=== PATIENT | female | born 1950 | race Caucasian/White ===

== ENCOUNTER 2019-04-28 16:19 | Inpatient (IN) | payer OTHER ==
[2019-04-28 17:24] LABS: Absolute Lymphocytes (CBC) 1.3 K/uL (0.7-4.9); Basophils % 0.3 % (0-1.3); Hematocrit 40.7 % (36.0-45.0); Lymphocytes % 16.3 % (15.3-44.8); MPV 9.1 fL (7.6-11.3); RBC Red Blood Cell Count 4.73 M/uL (3.86-4.86)
[2019-04-28 17:43] LABS: Albumin 3.7 g/dL (3.4-5.0); Bilirubin Direct 0.2 mg/dL (0-0.2); Bilirubin Total 0.6 mg/dL (0.2-1.0); Magnesium 1.9 mg/dL (1.8-2.4); Protein, Total 7.5 g/dL (6.4-8.2); Troponin (Emerg Dept Use Only) 0.12 ng/mL (0.0-0.045)
[2019-04-28 17:44] LABS: Protime INR 0.98
--- NOTE | 2019-04-28 17:56 | ER ---
Nurse's Notes [facility] Name: Clarice Esquivel Age: 68 yrs Sex: Female : 1950 Arrival Date: 04/28/2019 Time: 16:24 Bed 18 Private MD: Diagnosis: Other chest pain;Obesity, unspecified;Essential (primary) hypertension;Tachycardia, unspecified Presentation: 04/28 16:25 Presenting complaint: Patient states: headache, "feeling funny", hx HTN but hasn't been sv taking her prescribed meds and started taking holistic meds but then stopped taking those as well. Transition of care: patient was not received from another setting of care. Onset of symptoms was April 28, 2019. Risk Assessment: Do you want to hurt yourself or someone else? Patient reports no desire to harm self or others. Care prior to arrival: None. 16:25 Method Of Arrival: Ambulatory sv 16:25 Acuity: YESSENIA 2 sv 19:00 Initial Sepsis Screen: Does the patient meet any 2 criteria? No. Patient's initial rr5 sepsis screen is negative. Does the patient have a suspected source of infection? No. Patient's initial sepsis screen is negative. Historical: - Allergies: 16:26 No Known Allergies; sv - PMHx: 16:26 Hypertension; Hernia; sv - PSHx: 16:26 Hernia repair; Hysterectomy; sv - Immunization history:: Adult Immunizations unknown. - Social history:: Smoking status: unknown. - Ebola Screening: : Patient negative for fever greater than or equal to 101.5 degrees Fahrenheit, and additional compatible Ebola Virus Disease symptoms Patient denies exposure to infectious person Patient denies travel to an Ebola-affected area in the 21 days before illness onset. Screenin:14 Abuse screen: Denies threats or abuse. Denies injuries from another. Nutritional jl7 screening: No deficits noted. Tuberculosis screening: No symptoms or risk factors identified. Fall Risk IV access (20 points). Total Melton Fall Scale indicates No Risk (0-24 pts). Assessment: 17:00 General: Appears in no apparent distress. uncomfortable, Behavior is cooperative, jl7 anxious. Pain: Denies pain. Neuro: Level of Consciousness is awake, alert, obeys commands, Oriented to person, place, time, situation. Cardiovascular: Patient's skin is warm and dry. Respiratory: Airway is patent Respiratory effort is even, unlabored, Respiratory pattern is regular, symmetrical. GI: No signs and/or symptoms were reported involving the gastrointestinal system. : Reports urinary frequency. EENT: No signs and/or symptoms were reported regarding the EENT system. Derm: Skin is pink, warm \\T\\ dry. Musculoskeletal: No signs and/or symptoms reported regarding the musculoskeletal system. 18:26 Reassessment: D-Dimer 600, ERP notified. jl7 18:40 Reassessment: Dr. Trujillo and Dr. Duffy at bedside. jl7 19:25 General: Appears in no apparent distress. uncomfortable, Behavior is calm, cooperative, rr5 appropriate for age. Pain: Denies pain. Neuro: Level of Consciousness is awake, alert, obeys commands, Oriented to person, place, time, situation, Appropriate for age. Cardiovascular: Reports high BP Capillary refill < 3 seconds Patient's skin is warm and dry. Respiratory: Airway is patent Respiratory effort is even, unlabored, Respiratory pattern is regular, symmetrical. GI: No signs and/or symptoms were reported involving the gastrointestinal system. : Reports urinary frequency. EENT: No signs and/or symptoms were reported regarding the EENT system. Derm: Skin is intact, Skin is pink, warm \\T\\ dry. Musculoskeletal: Circulation, motion, and sensation intact. Capillary refill < 3 seconds. 20:06 Reassessment: Patient appears in no apparent distress at this time. Patient and/or rr5 family updated on plan of care and expected duration. Pain level reassessed. Patient is alert, oriented x 3, equal unlabored respirations, skin warm/dry/pink. sofa chair given, patient verbalized she feels much better now. awaiting for room assignment. Patient states feeling better. Patient states symptoms have improved. 21:11 Reassessment: Patient appears in no apparent distress at this time. Patient and/or rr5 family updated on plan of care and expected duration. Pain level reassessed. Patient is alert, oriented x 3, equal unlabored respirations, skin warm/dry/pink. explained to patient she will be an ER hold agreed for the plan, without complaints made. Vital Signs: 16:26 BP 181 / 85; Pulse 108; Resp 20; Temp 98.5; Pulse Ox 98% ; Weight 122.47 kg; Height 5 sv ft. 1 in. (154.94 cm); 18:38 BP 192 / 93; Pulse 91; Resp 22 S; Pulse Ox 97% on R/A; jl7 19:00 BP 171 / 85; Pulse 99; Resp 21; Temp 98.4; Pulse Ox 98% ; rr5 20:00 BP 160 / 74; Pulse 84; Resp 20; Temp 98.2; Pulse Ox 99% ; rr5 21:00 BP 168 / 71; Pulse 79; Resp 19; Temp 98.1; Pulse Ox 99% ; rr5 16:26 Body Mass Index 51.02 (122.47 kg, 154.94 cm) sv ED Course: 16:24 Patient arrived in ED. mr 16:26 Triage completed. sv 16:28 Arm band placed on. sv 16:34 Pepper Meade, ARIELLA is Primary Nurse. jl7 16:35 Israel Trujillo MD is Attending Physician. mariam 17:00 Patient has correct armband on for positive identification. Placed in gown. Bed in low jl7 position. Call light in reach. Side rails up X 1. cafeteria monitor on. Pulse ox on. NIBP on. 17:03 EKG done, by furniture repair technician. reviewed by Israel Trujillo MD. 3 17:12 XRAY Chest (1 view) In Process Unspecified. EDMS 17:15 Initial lab(s) drawn, by in, sent to lab. Inserted saline lock: 22 gauge in left jl7 forearm, using aseptic technique. Blood collected. 17:33 Urine collected: clean catch specimen, clear. jl7 17:52 Sailaja Mendiola MD is Hospitalizing Provider. [facility] 17:56 Terry Duffy MD is Hospitalizing Provider. mariam 18:09 CT Head Brain wo Cont In Process Unspecified. EDMS 23:00 No provider procedures requiring assistance completed. Patient admitted, IV remains in rr5 place. intact, No redness/swelling at site. Administered Medications: 18:40 Drug: Lopressor 5 mg Route: IVP; Site: left forearm; jl7 19:00 Follow up: Response: No adverse reaction; Blood pressure is lowered jl7 18:45 Drug: Pepcid 20 mg Route: IVP; Site: left forearm; jl7 19:00 Follow up: Response: No adverse reaction jl7 18:51 Drug: Lopressor (metoprolol TARTRATE) 50 mg Route: PO; jl7 19:00 Follow up: Response: No adverse reaction jl7 18:52 Not Given (Pt took 325 mg aspirin prior to arrival): Aspirin 162 mg PO once jl7 18:52 Not Given (Patient Refused): morphine 2 mg IVP once; (PAIN>8) RASS on ADMN: Combtv4, jl7 Very Agttd3, Agttd2, Rstlss1, AlertClm0, Drwsy-1, LtSdtn-2, ModSdtn-3, DpSdtn-4, UnArsble-5 x2 18:52 Not Given (Patient Refused): Zofran 4 mg IVP once; over 2 minutes jl7 18:53 Drug: Lovenox 1 mg/kg Route: Sub-Q; Site: left upper abdomen; jl7 19:00 Follow up: Response: No adverse reaction 7 Outcome: 17:54 Decision to Hospitalize by Provider. [facility] 23:00 Admitted to ER Hold. Please see [facility] for further documentation. rr5 23:00 Condition: stable rr5 23:00 Instructed on the need for admit. 04/29 07:37 Patient left the ED. Signatures: Dispatcher [employer] EDMS Jennifer Colon RN RN Israel Gregory MD MD cha Rivera, Mary mr Baxter, Heather, RN RN Pepper Meade RN RN jl7 Martina Underwood 3 Jai Call RN RN rr5 Corrections: (The following items were deleted from the chart) 04/28 16:29 16:25 Acuity: YESSENIA 3 sv sv 16:29 16:26 Pulse 108bpm; Resp 20bpm; Pulse Ox 98%; Temp 98.5F; 122.47 kg; Height 5 ft. 1 sv in.; BMI: 51.0; sv
--- NOTE | 2019-04-28 17:56 | EDPHYS ---
Physician Documentation [facility] Name: Clarice Esquivel Age: 68 yrs Sex: Female : 1950 Arrival Date: 04/28/2019 Time: 16:24 Bed 18 Private MD: EULOGIO Physician Israel Trujillo HPI: 04/28 17:49 This 68 yrs old Female presents to ER via Ambulatory with complaints of High mariam Blood Pressure. 17:49 The patient has elevated blood pressure and discovered this at home, with a home mariam device. Onset: The symptoms/episode began/occurred 1 day(s) ago. Modifying factors: The symptoms are aggravated by activity, The symptoms are alleviated by remaining still. Historical: - Allergies: 16:26 No Known Allergies; sv - PMHx: 16:26 Hypertension; Hernia; sv - PSHx: 16:26 Hernia repair; Hysterectomy; sv - Immunization history:: Adult Immunizations unknown. - Social history:: Smoking status: unknown. - Ebola Screening: : Patient negative for fever greater than or equal to 101.5 degrees Fahrenheit, and additional compatible Ebola Virus Disease symptoms Patient denies exposure to infectious person Patient denies travel to an Ebola-affected area in the 21 days before illness onset. ROS: 17:51 Constitutional: Negative for fever, chills, and weight loss, Eyes: Negative for injury, mariam pain, redness, and discharge, ENT: Negative for injury, pain, and discharge, Neck: Negative for injury, pain, and swelling, Respiratory: Negative for shortness of breath, cough, wheezing, and pleuritic chest pain, Abdomen/GI: Negative for abdominal pain, nausea, vomiting, diarrhea, and constipation, Back: Negative for injury and pain, : Negative for injury, bleeding, discharge, and swelling, MS/Extremity: Negative for injury and deformity, Skin: Negative for injury, rash, and discoloration, Neuro: Negative for headache, weakness, numbness, tingling, and seizure, Psych: Negative for depression, anxiety, suicide ideation, homicidal ideation, and hallucinations, Allergy/Immunology: Negative for hives, rash, and allergies, Endocrine: Negative for neck swelling, polydipsia, polyuria, polyphagia, and marked weight changes, Hematologic/Lymphatic: Negative for swollen nodes, abnormal bleeding, and unusual bruising. 17:51 Cardiovascular: Positive for chest pain, of the chest. Exam: 17:51 Constitutional: This is a well developed, well nourished patient who is awake, alert, mariam and in no acute distress. Head/Face: Normocephalic, atraumatic. Eyes: Pupils equal round and reactive to light, extra-ocular motions intact. Lids and lashes normal. Conjunctiva and sclera are non-icteric and not injected. Cornea within normal limits. Periorbital areas with no swelling, redness, or edema. ENT: Nares patent. No nasal discharge, no septal abnormalities noted. Tympanic membranes are normal and external auditory canals are clear. Oropharynx with no redness, swelling, or masses, exudates, or evidence of obstruction, uvula midline. Mucous membranes moist. Neck: Trachea midline, no thyromegaly or masses palpated, and no cervical lymphadenopathy. Supple, full range of motion without nuchal rigidity, or vertebral point tenderness. No Meningismus. Chest/axilla: Normal chest wall appearance and motion. Nontender with no deformity. No lesions are appreciated. Cardiovascular: Regular rate and rhythm with a normal S1 and S2. No gallops, murmurs, or rubs. Normal PMI, no JVD. No pulse deficits. Respiratory: Lungs have equal breath sounds bilaterally, clear to auscultation and percussion. No rales, rhonchi or wheezes noted. No increased work of breathing, no retractions or nasal flaring. Abdomen/GI: Soft, non-tender, with normal bowel sounds. No distension or tympany. No guarding or rebound. No evidence of tenderness throughout. Back: No spinal tenderness. No costovertebral tenderness. Full range of motion. Female : Normal external genitalia. Skin: Warm, dry with normal turgor. Normal color with no rashes, no lesions, and no evidence of cellulitis. MS/ Extremity: Pulses equal, no cyanosis. Neurovascular intact. Full, normal range of motion. Neuro: Awake and alert, GCS 15, oriented to person, place, time, and situation. Cranial nerves II-XII grossly intact. Motor strength 5/5 in all extremities. Sensory grossly intact. Cerebellar exam normal. Normal gait. Psych: Awake, alert, with orientation to person, place and time. Behavior, mood, and affect are within normal limits. Vital Signs: 16:26 BP 181 / 85; Pulse 108; Resp 20; Temp 98.5; Pulse Ox 98% ; Weight 122.47 kg; Height 5 sv ft. 1 in. (154.94 cm); 18:38 BP 192 / 93; Pulse 91; Resp 22 S; Pulse Ox 97% on R/A; jl7 19:00 BP 171 / 85; Pulse 99; Resp 21; Temp 98.4; Pulse Ox 98% ; rr5 20:00 BP 160 / 74; Pulse 84; Resp 20; Temp 98.2; Pulse Ox 99% ; rr5 21:00 BP 168 / 71; Pulse 79; Resp 19; Temp 98.1; Pulse Ox 99% ; rr5 16:26 Body Mass Index 51.02 (122.47 kg, 154.94 cm) sv MDM: 16:36 Patient medically screened. [facility] 17:51 Data reviewed: vital signs, nurses notes, lab test result(s), EKG, radiologic studies, [facility] CT scan, plain films. 04/28 16:37 Order name: Basic Metabolic Panel [facility] 04/28 16:37 Order name: CBC with Diff [facility] 04/28 16:37 Order name: LFT's [facility] 04/28 16:37 Order name: Magnesium [facility] 04/28 16:37 Order name: NT PRO-BNP [facility] 04/28 16:37 Order name: PT-INR [facility] 04/28 16:37 Order name: Troponin (emerg Dept Use Only); Complete Time: 17:47 [facility] 04/28 16:37 Order name: Basic Metabolic Panel; Complete Time: 17:47 [facility] 04/28 16:37 Order name: CBC with Automated Diff; Complete Time: 17:47 [facility] 04/28 16:37 Order name: Liver (Hepatic) Function; Complete Time: 17:47 [facility] 04/28 16:37 Order name: Magnesium; Complete Time: 17:47 [facility] 04/28 16:37 Order name: NT PRO-BNP; Complete Time: 17:47 [facility] 04/28 17:32 Order name: Urine Dipstick--Ancillary (enter results) 04/28 17:56 Order name: LAB Add On 04/28 16:37 Order name: XRAY Chest (1 view) [facility] 04/28 17:50 Order name: CT Head Brain wo Cont [facility] 04/28 18:04 Order name: D-Dimer [facility] 04/28 18:32 Order name: CT Chest For PE Angio bd 04/28 23:47 Order name: Troponin I [facility] 04/29 02:21 Order name: Urine Microscopic Only [facility] 04/29 06:58 Order name: CBC with Automated Diff [facility] 04/29 07:21 Order name: Basic Metabolic Panel [facility] 04/29 07:21 Order name: Lipid Profile [facility] 04/28 16:37 Order name: EKG; Complete Time: 16:38 [facility] 04/28 16:37 Order name: Cardiac monitoring; Complete Time: 17:11 [facility] 04/28 16:37 Order name: EKG - Nurse/Tech; Complete Time: 17:12 [facility] 04/28 16:37 Order name: IV Saline Lock; Complete Time: 17:12 [facility] 04/28 16:37 Order name: Labs collected and sent; Complete Time: 17:12 [facility] 04/28 16:37 Order name: O2 Per Protocol; Complete Time: 17:12 [facility] 04/28 16:37 Order name: O2 Sat Monitoring; Complete Time: 17:11 [facility] 04/28 16:37 Order name: Urine Dipstick-Ancillary (obtain specimen); Complete Time: 17:33 [facility] Administered Medications: 18:40 Drug: Lopressor 5 mg Route: IVP; Site: left forearm; jl7 19:00 Follow up: Response: No adverse reaction; Blood pressure is lowered jl7 18:45 Drug: Pepcid 20 mg Route: IVP; Site: left forearm; jl7 19:00 Follow up: Response: No adverse reaction jl7 18:51 Drug: Lopressor (metoprolol TARTRATE) 50 mg Route: PO; jl7 19:00 Follow up: Response: No adverse reaction jl7 18:52 Not Given (Pt took 325 mg aspirin prior to arrival): Aspirin 162 mg PO once jl7 18:52 Not Given (Patient Refused): morphine 2 mg IVP once; (PAIN>8) RASS on ADMN: Combtv4, jl7 Very Agttd3, Agttd2, Rstlss1, AlertClm0, Drwsy-1, LtSdtn-2, ModSdtn-3, DpSdtn-4, UnArsble-5 x2 18:52 Not Given (Patient Refused): Zofran 4 mg IVP once; over 2 minutes jl7 18:53 Drug: Lovenox 1 mg/kg Route: Sub-Q; Site: left upper abdomen; jl7 19:00 Follow up: Response: No adverse reaction jl7 Disposition: 04/28/19 17:54 Hospitalization ordered by Terry Duffy for Inpatient Admission. Preliminary diagnosis are Other chest pain, Obesity, unspecified, Essential (primary) hypertension, Tachycardia, unspecified. - Bed requested for Telemetry/MedSurg (Inpatient). - Status is Inpatient Admission. hb - Condition is Stable. - Problem is new. - Symptoms have improved. UTI on Admission? No Signatures: Dispatcher [employer] EDMS Jennifer Colon RN RN Israel Trujillo MD MD cha Garcia, Cindy RN RN Celsa Stockton RN RN hb Leal, Jahala, RN RN jl7 Jai Call RN RN rr5 Corrections: (The following items were deleted from the chart) 17:56 17:54 Hospitalization Ordered by Sailaja Mendiola MD for Inpatient Admission. Preliminary [facility] diagnosis is Other chest pain; Obesity, unspecified; Essential (primary) hypertension; Tachycardia, unspecified. Bed requested for Telemetry/MedSurg (Inpatient). Status is Inpatient Admission. Condition is Stable. Problem is new. Symptoms have improved. UTI on Admission? No. mariam 22:38 17:56 04/28/2019 17:54 Hospitalization Ordered by Terry Duffy MD for Inpatient cg Admission. Preliminary diagnosis is Other chest pain; Obesity, unspecified; Essential (primary) hypertension; Tachycardia, unspecified. Bed requested for Telemetry/MedSurg (Inpatient). Status is Inpatient Admission. Condition is Stable. Problem is new. Symptoms have improved. UTI on Admission? No. mariam 04/29 04:35 04/28 22:38 04/28/2019 17:54 Hospitalization Ordered by Terry Duffy MD for Inpatient cg Admission. Preliminary diagnosis is Other chest pain; Obesity, unspecified; Essential (primary) hypertension; Tachycardia, unspecified. Bed requested for [facility] ER HOLD. Status is Inpatient Admission. Condition is Stable. Problem is new. Symptoms have improved. UTI on Admission? No. cg 04/29 05:27 04:35 04/28/2019 17:54 Hospitalization Ordered by Terry Duffy MD for Inpatient cg Admission. Preliminary diagnosis is Other chest pain; Obesity, unspecified; Essential (primary) hypertension; Tachycardia, unspecified. Bed requested for Telemetry/MedSurg (Inpatient). Status is Inpatient Admission. Condition is Stable. Problem is new. Symptoms have improved. UTI on Admission? No. cg 07:37 05:27 04/28/2019 17:54 Hospitalization Ordered by Terry Duffy MD for Inpatient hb Admission. Preliminary diagnosis is Other chest pain; Obesity, unspecified; Essential (primary) hypertension; Tachycardia, unspecified. Bed requested for Telemetry/MedSurg (Inpatient). Status is Inpatient Admission. Condition is Stable. Problem is new. Symptoms have improved. UTI on Admission? No. cg
[2019-04-28] MEDS ORDERED: METOPROLOL TAR 50 MG TAB ONE (18:04)
[2019-04-28] MEDS ORDERED: ENOXAPARIN 100 MG/ML SYR SQ ONE (18:05)
[2019-04-28] MEDS ORDERED: METOPROLOL TARTRATE 5 MG/5 ML INJ IV ONE (18:05)
[2019-04-28] MEDS ORDERED: ONDANSETRON 4 MG/2 ML VIAL ONE (18:05)
[2019-04-28] MEDS ORDERED: MORPHINE 2 MG/ML SYR ONE (18:05)
[2019-04-28] MEDS ORDERED: FAMOTIDINE 20 MG/2 ML VIAL IV ONE (18:06)
[2019-04-28] MEDS ORDERED: ENOXAPARIN 30 MG/0.3 ML SQ ONE (18:06)
[2019-04-28] MEDS ORDERED: LABETALOL 20 MG/4ML SYRINGE IV PRN (18:42)
--- NOTE | 2019-04-28 18:49 | P.HP ---
Certification for Inpatient Patient admitted to: Inpatient With expected LOS: >2 Midnights Practitioner: I am a practitioner with admitting privileges, knowledge of patient current condition, hospital course, and medical plan of care. Services: Services provided to patient in accordance with Admission requirements found in Title 42 Section 412.3 of the Code of Federal Regulations Patient History Date of Service: 04/28/19 Primary Care Provider: Zion Reason for admission: Chest pain History of Present Illness: Patient is a 68-year-old female with past medical history of hypertension, obesity history of pulmonary embolism was in her usual state of health until day of admission when the patient had sudden onset of shoulder pain radiating to the arm. Also reported some chest tightness. Also had some headache. No associated nausea vomiting diaphoresis or palpitations. Patient does not take any medications for her blood pressure and notes that it is not well controlled. Patient's symptoms constant moderate progressively worsening. Patient came into the ER for further evaluation Initial workup revealed troponin level of 0.12. D-dimer was elevated. CT angio chest is pending. EKG did not show any acute ST elevation. 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 - Family History Brother -: Heart disease (Heart attack in his 40s), Other (see notes) Notes: hernia repair - Social History Smoking Status: Never smoker Alcohol use: No CD- Drugs: No Caffeine use: No Place of Residence: Home Review of Systems 10-point ROS is otherwise unremarkable Cardiovascular: As per HPI Musculoskeletal: As per HPI Physical Examination - Vital Signs Temperature: 98.5 F Blood Pressure: 181/85 Pulse: 108 Respirations: 20 Pulse Ox (%): 98 - Physical Exam General: Alert, Oriented x3, Mild distress, Obese, Other (Elderly female ill- appearing) HEENT: Atraumatic, PERRLA, Mucous membr. moist/pink, EOMI, Sclerae nonicteric Neck: Supple, JVD not distended Respiratory: Clear to auscultation bilaterally, Normal air movement Cardiovascular: No edema, Normal pulses, Normal S1 S2, Irregular heart rate/ rhythm Gastrointestinal: Normal bowel sounds, Soft and benign, Non-distended, No tenderness, No rebound, No guarding, Other (Ventral hernia) Musculoskeletal: No tenderness Integumentary: No rashes, No erythema Neurological: Normal speech, Normal strength at 5/5 x4 extr, Normal tone, Normal affect - Studies Laboratory Data (last 24 hrs) 04/28/19 17:04: PT 11.6, INR 0.98 04/28/19 17:04: WBC 8.2, Hgb 13.7, Hct 40.7, Plt Count 202 04/28/19 17:04: Sodium 140, Potassium 4.0, BUN 18, Creatinine 0.77, Glucose 111 H, Magnesium 1.9, Total Bilirubin 0.6, AST 29, ALT 65, Alkaline Phosphatase 93 Assessment and Plan - Plan NSTEMI: Will start on chest pain guidelines therapeutic Lovenox 1 milligram/ kilogram q.12 hr. Obtain echocardiogram and consult cardiology still cardiac enzymes and EKG. Will use nitro and morphine p.r.n. HYPERTENSIVE URGENCY: Start on IV p.r.n. medications. The patient is not on any medications at home MORBID OBESITY: BMI 51. Counseled HISTORY OF PE: Patient has elevated D-dimer will obtain CT angio chest to rule out recurrent PE. Patient was on anticoagulation for 1 year after her PE. Discharge Plan: Home Plan to discharge in: 48 Hours - Advance Directives Does patient have a Living Will: No Does patient have a Durable POA for Healthcare: No - Code Status/Comfort Care Code Status Assessed: Yes
[2019-04-28 18:52] LABS: Urine Blood NEGATIVE (NEG); Urine Glucose NEGATIVE (NEG); Urine Protein NEGATIVE (NEG); Urine pH 5.5 (5.0-7.0)
[2019-04-28] MEDS ORDERED: LABETALOL 20 MG/4ML SYRINGE IV ONE (22:13)
[2019-04-28] MEDS ORDERED: NITROGLYCERIN 0.4 MG/TAB SL PRN (22:30)
[2019-04-28] MEDS ORDERED: ENOXAPARIN 100 MG/ML SYR SQ SCH (22:30)
[2019-04-28] MEDS ORDERED: MORPHINE 2 MG/ML SYR IV PRN (22:30)
[2019-04-28] MEDS ORDERED: ACETAMINOPHEN 500 MG TAB PO PRN (22:30)
[2019-04-28] MEDS: METOPROLOL TAR 50 MG TAB PO SCH (22:30)
[2019-04-28] MEDS: ATORVASTATIN 80 MG TAB PO SCH (22:30)
[2019-04-28] MEDS ORDERED: ATORVASTATIN 20 MG TAB ONE (22:41)
--- NOTE | 2019-04-29 00:36 | P.PN ---
Subjective Date of Service: 04/29/19 Primary Care Provider: Zion Chief Complaint: Chest pain Subjective: Other (Patient feels better. Vital signs improved.) Physical Examination - Vital Signs Temperature: 98 F Blood Pressure: 146/65 Pulse: 74 Respirations: 16 Pulse Ox (%): 99 - Physical Exam General: Alert, In no apparent distress, Oriented x3, Cooperative HEENT: Atraumatic Neck: Supple Respiratory: Clear to auscultation bilaterally, Normal air movement Cardiovascular: Normal pulses, Regular rate/rhythm Gastrointestinal: Normal bowel sounds, Soft and benign, Non-distended, No tenderness, No masses, No rebound, No guarding Musculoskeletal: No erythema, No tenderness, No warmth Integumentary: No tenderness/swelling, No erythema, No warmth, No cyanosis Neurological: Normal speech, Normal strength at 5/5 x4 extr, Normal tone, Normal affect - Studies Laboratory Data (last 24 hrs) 04/28/19 17:04: PT 11.6, INR 0.98 04/28/19 17:04: WBC 8.2, Hgb 13.7, Hct 40.7, Plt Count 202 04/28/19 17:04: Sodium 140, Potassium 4.0, BUN 18, Creatinine 0.77, Glucose 111 H, Magnesium 1.9, Total Bilirubin 0.6, AST 29, ALT 65, Alkaline Phosphatase 93 Medications List Reviewed: Yes Assessment & Plan Discharge Plan: Home Plan to discharge in: 24 Hours Physician Review Additional Text: Impression: Chest pain secondary to NSTEMI suspect CAD Hypertensive urgency Obesity Plan: Chest pain secondary to NSTEMI suspect CAD: CT angiogram negative. Will keep the patient NPO as the patient will require cardiac intervention to further evaluate. Cardiology consulted. Await findings. Continue current medication. Hospitalist will continue her care. Hypertensive urgency: Blood pressure improved. Continue medication. Will monitor and adjust appropriately. Obesity: Will calculate BMI. Will address lifestyle modification education. Time Spent Managing Pts Care (In Minutes): 55
[2019-04-29 02:20] LABS: Urine Bacteria <20 /HPF (<20); Urine Culture Reflex Order NOT NEEDED; Urine RBC <5 /HPF (NONE SEEN)
[2019-04-29 06:05] VITALS: BMI 51.5
[2019-04-29 06:53] LABS: RBC Red Blood Cell Count 4.62 M/uL (3.86-4.86)
[2019-04-29 06:54] LABS: Absolute Lymphocytes (CBC) 2.2 K/uL (0.7-4.9); Basophils % 0.5 % (0-1.3); Lymphocytes % 30.9 % (15.3-44.8); MPV 9.2 fL (7.6-11.3)
[2019-04-29 07:21] LABS: BUN Blood Urea Nitrogen 13 mg/dL (7-18); Bicarbonate 27 mmol/L (21-32); Glucose Level 101 mg/dL (74-106); HDL Cholesterol 45 mg/dL (40-60); LDL Cholesterol, Calculated 71 (<130); Potassium 3.6 mmol/L (3.5-5.1); Sodium Level 141 mmol/L (136-145)
[2019-04-29] MEDS ORDERED: LIDOCAINE 1% MPF 30 ML VIAL ONE (08:18)
[2019-04-29] MEDS ORDERED: HEPA 1000U/500MLS 2,000 UNIT/1,000 ML BAG IV ONE (08:18)
[2019-04-29] MEDS: METOPROLOL TAR 50 MG TAB PO SCH ×2 (09:00→22:33)
[2019-04-29] MEDS: LISINOPRIL 10 MG TAB PO SCH (09:17)
[2019-04-29] MEDS: ASPIRIN EC 81 MG TAB PO SCH (09:17)
[2019-04-29] MEDS ORDERED: NA CHLORIDE 0.9% 500 ML ONE (09:49)
[2019-04-29] MEDS ORDERED: MIDAZOLAM HCL 2 MG/2 ML INJ ONE (09:50)
[2019-04-29] MEDS ORDERED: NICARDIPINE HCL 25 MG/10 ML IV ONE (09:50)
[2019-04-29] MEDS ORDERED: HEPARIN 5000 UNIT/ML 1 ML VIAL ONE (09:50)
[2019-04-29] MEDS ORDERED: FENTANYL CITR 100 MCG/2 ML ONE (09:50)
[2019-04-29] MEDS ORDERED: ATROPINE SULF 1 MG/10 ML SYR IV ONE (09:51)
[2019-04-29] MEDS ORDERED: NA CHLORIDE 0.9% 0 ML IV ONE (09:51)
[2019-04-29] MEDS ORDERED: NITROGLYCERIN/D5W 25 MG/250 ML BTL IV ONE (09:51)
[2019-04-29] MEDS ORDERED: NITROGLYCERIN 100 MCG/ML SYR (for cath lab use only) IV ONE (09:51)
[2019-04-29] MEDS ORDERED: PNEUMOCOCCAL VACCINE 0.5 ML IMVAC ONE (11:00)
[2019-04-29] MEDS ORDERED: ACETAMINOPHEN 500 MG TAB ONE (11:53)
--- NOTE | 2019-04-29 14:57 | RAD REPORT ---
EXAM DESCRIPTION: CT - CHEST FOR PE ANGIO CLINICAL HISTORY: Chest pain, elevated D Dimer COMPARISON: Chest film same date. TECHNIQUE: During dynamic enhancement using non-ionic IV contrast, axial 3 mm thick images of the chest were obtained. López and bilateral oblique reconstruction images were generated and reviewed. This exam was performed according to our departmental dose-optimization program, which includes automated exposure control, adjustment of the mA and/or kV according to patient size and/or use of iterative reconstruction technique. FINDINGS: No pulmonary emboli identified. Aorta shows not acute finding. No cardiomegaly or pericardial effusion is seen. No pneumothorax or pleural effusion. There is no mass or consolidation seen. Interstitial markings are accentuated by motion. This could mask early edema. No acute bone finding. No suspicious finding in the limited upper abdomen assessment. IMPRESSION: 1. No pulmonary emboli. 2. No focal lung parenchymal process is seen. Motion degradation limits interstitial assessment. This could potentially mask early interstitial edema or infiltrate.
--- NOTE | 2019-04-29 15:52 | P.PN ---
Date of Service: 04/29/19 Patient seen and examined. Case discussed with Dr. Macias Patient had cardiac catheterization. With normal coronary arteries. Likely had Taktsubo's syndrome. Will continue on aspirin nitro statin and add calcium channel gaviota. Monitor overnight per cardiology Assessment NSTEMI
--- NOTE | 2019-04-29 21:41 | OP ---
Surgeon: Junior Macias MD River Pilot: Denise Hilliard. Procedure: Left heart catheterization, coronary left ventricular angiography. Findings: The patient has completely normal coronary arteries, normal ejection fraction, normal segm ental wall motion, normal pressures. Procedure In Detail: Because of atypical chest pain and abnormal cardiac enzymes, the patient was br ought to the cardiac laboratory immunologist in a fasting state. She was sedated with Versed and fentanyl. Prepare d and draped in the usual sterile fashion. Right radial approach was used. We anesthetized the skin over the right radial artery with 1% lidocaine, 2 mL. We entered the artery with a 21-gauge needle, cannulated with a 0.021 inch guidewire, placed a 6-Frisian Terumo radial sheath. As soon as the bassett th was in, it was flushed and a radial cocktail was given consisting of nicardipine, heparin, and nit roglycerin. A TIG catheter was guided into the ascending aorta using a Terumo Glidewire and fluorosc opy. We were able to angiogram right coronary, left coronary, left ventricle all with the same nidhi ter after the findings were known and no intervention was indicated or planned. We withdrew the cath eter over the J-wire. We flushed the sheath, removed and closed the arteriotomy using a TR band. Complications During The Procedure: None. Estimated Blood Loss: 5 cc. SILVIA Voice ID: [id number] Report ID: [id number]
[2019-04-29] MEDS: ATORVASTATIN 80 MG TAB PO SCH (22:33)
--- NOTE | 2019-04-30 04:46 | EKG ---
Test Date: 2019-04-28 Test Time: 16:45:23 Project Director: SUSAN MEASUREMENT RESULTS: Intervals: Rate: 110 WI: 162 QRSD: 78 QT: 340 QTc: 460 [place]: P: 89 WI: 162 QRS: 84 T: 79 INTERPRETIVE STATEMENTS: Sinus tachycardia with premature supraventricular complexes Low voltage QRS Borderline ECG Compared to ECG 05/10/2014 08:11:30 Atrial premature complex(es) now present Low QRS voltage now present Sinus rhythm no longer present Electronically Signed On 04-30-19 04:45:32 CDT by Junior Macias
[2019-04-30 06:23] LABS: Absolute Lymphocytes (CBC) 2.4 K/uL (0.7-4.9); Basophils % 0.7 % (0-1.3); Hematocrit 38.9 % (36.0-45.0); Lymphocytes % 32.2 % (15.3-44.8); MPV 9.4 fL (7.6-11.3); RBC Red Blood Cell Count 4.45 M/uL (3.86-4.86)
[2019-04-30 06:57] LABS: BUN Blood Urea Nitrogen 16 mg/dL (7-18); Bicarbonate 27 mmol/L (21-32); Glucose Level 89 mg/dL (74-106); Sodium Level 143 mmol/L (136-145)
[2019-04-30 08:38] VITALS: BP 156/82; TEMP 97.5
[2019-04-30] MEDS ORDERED: AMLODIPINE 5 MG TAB PO SCH (09:00)
[2019-04-30] MEDS: METOPROLOL TAR 50 MG TAB PO SCH (09:00)
[2019-04-30] MEDS: LISINOPRIL 10 MG TAB PO SCH (09:01)
[2019-04-30] MEDS: ASPIRIN EC 81 MG TAB PO SCH (09:01)
[2019-04-30 09:05] VITALS: O2SAT 97
--- NOTE | 2019-04-30 12:27 | RAD REPORT ---
EXAM DESCRIPTION: RAD - Chest Single View - 04/29/2019 7:01 pm CLINICAL HISTORY: Cough, shortness of breath COMPARISON: April 2014 TECHNIQUE: AP portable chest image was obtained 1648 hours . FINDINGS: Lung volumes are low. No peripheral mass or consolidation. PICC line has been removed sinc e prior imaging. Lung markings are accentuated due to shallow inspiration and body habitus. Lung vesna ings and upper lobe vasculature are similar to slightly increased over comparison. Hilar fullness or pulmonary artery enlargement matches 2014. Heart size normal range for portable shallow inspiration exam. No measurable pleural effusion and no pneumothorax. No acute bony abnormality seen. No acute aortic findings suspected. IMPRESSION: Limited portable imaging shows no peripheral mass or consolidation. Lung markings are similar to slightly increased from comparison. This could be progression of chronic lung disease, minimal edema and/or minimal infiltrate. Note: Due to prolonged technical difficulties with the PACs - dictation systems, a final written repo rt was delayed.
--- NOTE | 2019-04-30 13:36 | PN ---
Ms. Esquivel has normal coronary arteries and the enzyme release is probably what we would call a Takot subo or broken heart MD. The patient is extremely emotional. At this point, I think she could be di scharged, taking medicines. She is on basically anti-platelet therapy, statin therapy, beta-blockers and p.r.n. nitrates. LETICIA/YFN Voice ID: [id number] Report ID: [id number]
--- NOTE | 2019-04-30 16:11 | RAD REPORT ---
EXAM DESCRIPTION: CT - Head Brain Wo Cont - 04/29/2019 7:03 pm CLINICAL HISTORY: Headache, head pain COMPARISON: None. TECHNIQUE: Axial 5 mm thick images of the head were obtained without IV contrast. All CT scans are performed using dose optimization technique as appropriate and may include automated exposure control or mA/KV adjustment according to patient size. FINDINGS: No intracranial hemorrhage, mass, edema or shift of mid-line structures. No acute infarcti on changes seen. No abnormal extra-axial fluid collections. Ventricles are normal. Mastoid air cells and visualized portions of the paranasal sinuses are clear. No acute bony findings. IMPRESSION: Negative non-contrast CT head examination for acute or significant finding. Note: Due to prolonged technical difficulties with the PACs dictations systems, final written report was delayed. A verbal report was called to the referring clinician at the time of the study.
--- NOTE | 2019-05-01 03:50 | DS ---
Date of Discharge: 04/30/2019 Consultants: Dr. Macias with Cardiology. Procedures: Cardiac catheterization on 04/29/2019. Admitting Diagnoses: 1.Uxb-SZ-dlxyiigld myocardial infarction. 2.Hypertensive urgency. 3.Morbid obesity. 4.History of pulmonary embolism. Discharge Diagnoses: 1.Tyh-TJ-avdskwajw myocardial infarction, likely takotsubo syndrome. 2.Hypertensive urgency. 3.Morbid obesity. 4.History of pulmonary embolism. Hospital Course: Patient is a 68-year-old female with past medical history of hypertension, obesity, history of PE, comes in with chest pain and shoulder pain. Patient thought it was related to her wo rk and was musculoskeletal. Her workup revealed elevated troponin level, D-dimer was also elevated. CT angio of the chest was done, which was negative for any PE. Patient was taken for cardiac cathet erization due to markedly elevated cardiac enzymes at 5.27. Cardiac catheterization showed normal co ronaries. No stent was required. Cardiology felt that this was likely takotsubo syndrome brought on by stress. Patient was continued on calcium channel gaviota, nitroglycerin as needed, aspirin, and statin. Triglycerides were elevated. Patient's condition improved. Her chest pain resolved. She w as then cleared for discharge. She was sent home in a stable condition. Activity: As tolerated. Medications: As per medication reconciliation list. Followup: Follow up with primary care physician in 2 to 3 days. Follow up with dope worker, Dr. Elder chao, in 2 weeks. Return to ER for worsening condition. Diet: Heart healthy. Physical Examination: General: Awake, alert, oriented x3. Morbidly obese female, not in any acute distress. CVS: S1, S2. No murmurs. Respiratory: Moving air well bilaterally. No wheezing or stridor. Gastrointestinal: Abdomen is soft, nontender, nondistended. Positive bowel sounds. Extremities: No clubbing, cyanosis, or edema. Neurologic: Nonfocal. Total time spent discharging patient was 36 minutes. SA/MODL Voice ID: [id number] Report ID: [id number]
--- NOTE | 2019-05-02 10:00 | CON ---
Identification: 68-year-old woman. Chief Complaint: Headache, although she also had chest pain posterior between her shoulder blades an d her shoulders. She has been having that pain and attributes that to sewing so much. She gets that when she works [address] physically and thinks it is because she leans forward a lot and goes away with rest. Yesterday, i t was worse than usual associated with a headache. Since being here, her cardiac enzymes indicate a non-ST elevation myocardial infarction. EKG was nonspecific changes. There was no ST elevation. No Q-waves. Her troponin has gone from 0.12 to 2.98 to 5.27. Her creatinine is 0.59. The patient has hypertension that is untreated. She does not have diabetes or dyslipidemia. She is obese. Has no allergies. Uses no tobacco or alcohol. Physical Examination: General: She is 5 feet tall, 264 pounds, morbidly obese. HEENT: Normal. Lungs: Clear. Cardiac: Normal. Abdomen: Soft. Extremities: Normal distal pulses. No cyanosis, clubbing, or edema. Her cholesterol was 146, HDL c holesterol 45. Impression: The patient has had an acute lvw-ZM-xyetbjdhx non-Q-wave myocardial infarction. We shou ld do a cardiac cath on her. She is willing to do it later this morning. She has had a dose of enoxaparin. We will try to see when the last dose was given. We may have to do this heart catheteri zation early this afternoon. SILVIA Voice ID: [id number] Report ID: [id number]
== END 2019-04-30 11:05 | disposition home or self-care (01) | DRG 287 ==
LOC: ER 16:19 → OBSVTOIN 18:20 → ERHOLD 18:20 → 4TH 04-29 07:27
PROVIDERS: ADMIT Family Medicine; ATTEND Family Medicine
PROC: 4A023N7 Measurement of Cardiac Sampling and Pressure, Left Heart, Percutaneous Approach (ICD-10-PCS; principal; 2019-04-29)
PROC: B201YZZ Plain Radiography of Multiple Coronary Arteries using Other Contrast (ICD-10-PCS; 2019-04-29)
PROC: B205YZZ Plain Radiography of Left Heart using Other Contrast (ICD-10-PCS; 2019-04-29)
DX: I51.81 Takotsubo syndrome (principal); Z68.43 Body mass index [BMI] 50.0-59.9, adult; I16.0 Hypertensive urgency; E66.01 Morbid (severe) obesity due to excess calories; F43.9 Reaction to severe stress, unspecified; Z86.711 Personal history of pulmonary embolism
CPT/HCPCS: 36415; 70450; 71045; 71275; 80048; 80061; 80076; 81003; 81015; 83735; 83880; 84484; 85025; 85379; 85610; 93005; 93458; 94760; 96372; 96374; 96375; 99285; C1893; J0583; J1644; J1650; J2250; J2270; J2405; J3010; J7040; Q9967

== ENCOUNTER 2020-04-14 19:31 | Emergency (ER) | payer OTHER ==
[2020-04-14 20:22] LABS: Absolute Lymphocytes (CBC) 1.5 K/uL (0.7-4.9); Basophils % 0.5 % (0-1.3); Hematocrit 43.9 % (36.0-45.0); Lymphocytes % 19.8 % (15.3-44.8); MPV 9.1 fL (7.6-11.3); RBC Red Blood Cell Count 5.07 M/uL (3.86-4.86)
[2020-04-14 20:24] LABS: Protime INR 1.04
[2020-04-14] MEDS ORDERED: METOPROLOL TARTRATE 5 MG/5 ML INJ IV ONE (20:28)
[2020-04-14 20:41] LABS: ALT/SGPT 32 U/L (12-78); AST/SGOT 18 U/L (15-37); Albumin 3.8 g/dL (3.4-5.0); Alkaline Phosphatase 94 U/L (45-117); BUN Blood Urea Nitrogen 11 mg/dL (7-18); Bicarbonate 24 mmol/L (21-32); Bilirubin Direct 0.3 mg/dL (0-0.2); Glucose Level 118 mg/dL (74-106); NT PRO-BNP 1043 pg/mL (<125); Potassium 4.1 mmol/L (3.5-5.1); Protein, Total 7.7 g/dL (6.4-8.2); Sodium Level 140 mmol/L (136-145); Troponin (Emerg Dept Use Only) < 0.02 ng/mL (0.0-0.045)
--- NOTE | 2020-04-14 21:10 | RAD REPORT ---
EXAM DESCRIPTION: Inna Single View04/14/2020 8:29 pm CLINICAL HISTORY: Cough COMPARISON: 2018 FINDINGS: The lungs appear clear of acute infiltrate. The heart is borderline enlarged IMPRESSION: No acute abnormalities displayed
--- NOTE | 2020-04-14 21:19 | RAD REPORT ---
EXAM DESCRIPTION: CT - Head Brain Wo Cont - 04/14/2020 8:48 pm CLINICAL HISTORY: Alteration of awareness/confusion COMPARISON: 2019 TECHNIQUE: Computed axial tomography of the head was obtained. IV contrast was not requested. All CT scans are performed using dose optimization technique as appropriate and may include automated exposure control or mA/KV adjustment according to patient size. FINDINGS: An intracranial bleed is not seen . Empty sella turcica. The ventricles are normal in caliber. No extra-axial fluid collection is noted. Mild to moderate low-density areas within periventricular, deep and subcortical white matter likely r epresent ischemic changes secondary to small vessel disease. Fluid within the sinuses/ mastoids is not seen. IMPRESSION: No acute intracranial abnormality is seen. If patient's symptoms persist MRI of the bra in would be recommended.
[2020-04-14] MEDS ORDERED: LORazepam 2 MG/ML VIAL ONE (23:23)
[2020-04-15] MEDS ORDERED: ASPIRIN 81 MG CHEWABLE TABLET ONE (01:04)
--- NOTE | 2020-04-15 02:01 | ER ---
Nurse's Notes [facility] Name: Clarice Esquivel Age: 69 yrs Sex: Female : 1950 Arrival Date: 04/14/2020 Time: 19:33 Bed 7 Private MD: Diagnosis: Transient Ischemic Attack;New Onset Atrial Fibrillation with RVR Presentation: 04/14 19:36 Chief complaint: Patient states: Slept at [phone] today, Woke at 1330 today and was ca1 confused. Everything seems off. I couldn't operate my cell phone, the sewing machine that I used the night before. Denies weakness, Denes slurring of speech, Denies drooping of face. A\T\Ox4 at this time. VAN negative. Reports headache for the past few days. C/o dizziness and nausea when attempting to lay on the ER bed. Denies urinary symptoms. Denies fever. Denies cough. Denies abdominal pain. Coronavirus screen: Client denies travel out of the [place] in the last 14 days. At this time, the client does not indicate any symptoms associated with coronavirus-19. Ebola Screen: Patient negative for fever greater than or equal to 101.5 degrees Fahrenheit, and additional compatible Ebola Virus Disease symptoms Patient denies exposure to infectious person. Patient denies travel to an Ebola-affected area in the 21 days before illness onset. No symptoms or risks identified at this time. Initial Sepsis Screen: Does the patient meet any 2 criteria? Altered Mental Status. HR > 90 bpm. Yes Does the patient have a suspected source of infection? No. Patient's initial sepsis screen is negative. Risk Assessment: Do you want to hurt yourself or someone else? Patient reports no desire to harm self or others. Onset of symptoms was April 14, 2020. 19:36 Method Of Arrival: Wheelchair ca1 19:36 Acuity: YESSENIA 2 ca1 Triage Assessment: 20:21 General: Appears in no apparent distress. Behavior is anxious. Pain: Complains of pain ea in abdomen. Neuro: Level of Consciousness is awake, alert, obeys commands, Oriented to person, place, time, Insulation Worker are equal bilaterally Moves all extremities. Speech is normal, Facial symmetry appears normal. Respiratory: Airway is patent Respiratory effort is even, unlabored, Respiratory pattern is regular, symmetrical. Derm: Skin is pink, warm \T\ dry. Musculoskeletal: Circulation, motion, and sensation intact. Historical: - Allergies: 19:59 No Known Allergies; ca1 - Home Meds: 19:59 Metoprolol Tartrate Oral [Active]; ca1 - PMHx: 19:59 Hernia; Hypertension; heart attack; ca1 - PSHx: 19:59 Hernia repair; Hysterectomy; ca1 - Immunization history:: Adult Immunizations not up to date. - Social history:: Smoking status: Patient denies any tobacco usage or history of. Screenin:57 Abuse screen: Denies threats or abuse. Nutritional screening: No deficits noted. ea Tuberculosis screening: No symptoms or risk factors identified. 19:59 VAN Screening: Arm Drift: Patient shows no arm weakness. Patient is VAN negative. ca1 20:22 Fall Risk IV access (20 points). ea Assessment: 20:21 Reassessment: see triage assessment. ea 21:06 Reassessment: Patient and/or family updated on plan of care and expected duration. Pain ea level reassessed. Patient is alert, oriented x 3, equal unlabored respirations, skin warm/dry/pink. 22:32 Reassessment: Patient and/or family updated on plan of care and expected duration. Pain ea level reassessed. Patient is alert, oriented x 3, equal unlabored respirations, skin warm/dry/pink. 23:26 Reassessment: Patient and/or family updated on plan of care and expected duration. Pain ea level reassessed. Patient is alert, oriented x 3, equal unlabored respirations, skin warm/dry/pink. Pt taken to CT. 04/15 00:37 Reassessment: Patient and/or family updated on plan of care and expected duration. Pain ea level reassessed. Patient is alert, oriented x 3, equal unlabored respirations, skin warm/dry/pink. 01:30 Reassessment: Patient and/or family updated on plan of care and expected duration. Pain ea level reassessed. Patient is alert, oriented x 3, equal unlabored respirations, skin warm/dry/pink. 02:35 Reassessment: Patient and/or family updated on plan of care and expected duration. Pain ea level reassessed. Patient is alert, oriented x 3, equal unlabored respirations, skin warm/dry/pink. Report given to Rand KRISHNAN at [facility]. 03:37 Reassessment: Patient and/or family updated on plan of care and expected duration. Pain ea level reassessed. Patient is alert, oriented x 3, equal unlabored respirations, skin warm/dry/pink. [facility] at facility for transfer, report given to [facility]. Pt left ED via stretcher, tolerating well. Vital Signs: 04/14 19:36 BP 191 / 109; Pulse 106; Resp 17 S; Temp 96.7(TE); Pulse Ox 99% on R/A; Weight 113.4 kg ca1 (R); Height 5 ft. 0 in. (152.40 cm) (R); 20:31 BP 161 / 125; Pulse 102; Resp 18; Pulse Ox 98% on R/A; ea 20:45 BP 159 / 91; Pulse 79; Resp 18; Pulse Ox 98% on R/A; ea 21:41 BP 163 / 97; Pulse 102; Resp 18; Pulse Ox 98% on R/A; ea 22:05 Temp 97.6; ea 23:00 BP 186 / 107; Pulse 96; Resp 18; Pulse Ox 98% ; ea 04/15 00:37 BP 155 / 96; Pulse 106; Resp 18; Pulse Ox 98% ; ea 01:30 Pulse 92; Resp 18; Temp 97.8(TE); Pulse Ox 98% ; ea 02:25 BP 169 / 80; Pulse 94; Resp 18; Temp 97.8; Pulse Ox 99% on R/A; ea 04/14 19:36 Body Mass Index 48.82 (113.40 kg, 152.40 cm) ca1 ED Course: 04/14 19:33 Patient arrived in ED. am2 19:35 Miri Adamson, ARIELLA is Primary Nurse. ea 19:36 Ifeanyi Pang MD is Attending Physician. mh7 19:58 Triage completed. ca1 19:58 Patient has correct armband on for positive identification. Placed in gown. Bed in low ea position. Call light in reach. Side rails up X2. color television console monitor on. Pulse ox on. NIBP on. 19:59 Arm band placed on right wrist. ca1 20:10 Inserted saline lock: 20 gauge in right forearm, using aseptic technique. Blood ea collected. 20:30 XRAY Chest (1 view) In Process Unspecified. EDMS 20:50 CT Head Brain wo Cont In Process Unspecified. EDMS 23:44 CT Chest For PE Angio In Process Unspecified. EDMS 04/15 01:15 Initiated transfer to [facility]. Spoke with Carline Ayala. Pt. diagnosis is TIA ar5 and New onset AFIB. Needs neurology and [facility] does not have neurology available. 01:35 Dr. Pang spoke with stroke team. ar5 01:42 No provider procedures requiring assistance completed. Patient transferred, IV remains mg2 in place. 01:45 Dr[address] Pang spoke with Dr Justin Vaughan internal medicine. ar5 01:49 Acceptance given by Carline Ayala \T\ [facility]. Accepting physician is Dr. Justin Vaughan. Pt going to [address] Call report [phone]. 02:55 Called [facility] to transfer pt. EMS will be here in 20-25 minutes. ar5 Administered Medications: 04/14 20:29 Drug: Lopressor 5 mg Route: IVP; Site: right forearm; ea 22:09 Follow up: Response: No adverse reaction ea 23:15 Drug: Ativan 0.5 mg Route: IVP; Site: right forearm; ea 04/15 01:55 Follow up: Response: No adverse reaction mg2 00:59 Drug: Aspirin Chewable Tablet 324 mg Route: PO; mg2 01:55 Follow up: Response: No adverse reaction mg2 01:55 Drug: Lovenox 1 mg/kg Route: Sub-Q; Site: left lower abdomen; mg2 02:26 Follow up: Response: No adverse reaction ea Outcome: 02:00 ER care complete, transfer ordered by . [facility] 02:26 Instructed on the need for transfer, Demonstrated understanding of instructions. ea 03:37 Transferred by ground EMS to [facility], Transfer form completed. ea 03:37 Condition: stable 03:38 Patient left the ED. ea Signatures: Dispatcher [employer] EDMS Lisseth Armas Elena, RN RN ea Gardose, Michele, RN RN mg2 Robles, Autumn ar5 Marley Lopes RN RN ca1 Holmes, Maurice, MD MD [facility]
--- NOTE | 2020-04-15 02:01 | EDPHYS ---
Physician Documentation [facility] Name: Clarice Esquivel Age: 69 yrs Sex: Female : 1950 Arrival Date: 04/14/2020 Time: 19:33 Bed 7 Private MD: ED Physician Ifeanyi Pang HPI: 04/14 20:25 This 69 yrs old Female presents to ER via Wheelchair with complaints of mh7 Altered Mental Status. 20:25 The patient presents with confusion. Onset: The symptoms/episode began/occurred today, mh7 at 13:30. Possible causes: unknown. 20:25 Associated signs and symptoms: Pertinent positives: dizziness, headache, mh7 lightheadedness, nausea, Pertinent negatives: abdominal pain, agitation, ataxia, chest pain, combativeness, diaphoresis, diarrhea, numbness, palpitations, seizure, shortness of breath, tingling, vertigo, vomiting, weakness. 20:27 Current symptoms: In the emergency department the patient's symptoms have resolved, the mh7 patient is alert and fully oriented, has normal speech, has normal responsiveness, has no confusion. Patient's baseline: Neuro: alert and fully oriented, Motor: no deficits, Ambulation: walks without assistance, Speech: normal. Historical: - Allergies: 19:59 No Known Allergies; ca1 - Home Meds: 19:59 Metoprolol Tartrate Oral [Active]; ca1 - PMHx: 19:59 Hernia; Hypertension; heart attack; ca1 - PSHx: 19:59 Hernia repair; Hysterectomy; ca1 - Immunization history:: Adult Immunizations not up to date. - Social history:: Smoking status: Patient denies any tobacco usage or history of. ROS: 20:27 Constitutional: Negative for fever, chills, and weight loss, Eyes: Negative for injury, mh7 pain, redness, and discharge, ENT: Negative for injury, pain, and discharge, Neck: Negative for injury, pain, and swelling, Cardiovascular: Negative for chest pain, palpitations, and edema, Respiratory: Negative for shortness of breath, cough, wheezing, and pleuritic chest pain, Back: Negative for injury and pain, : Negative for injury, bleeding, discharge, and swelling, MS/Extremity: Negative for injury and deformity, Skin: Negative for injury, rash, and discoloration, Psych: Negative for depression, anxiety, suicide ideation, homicidal ideation, and hallucinations, Allergy/Immunology: Negative for hives, rash, and allergies, Endocrine: Negative for neck swelling, polydipsia, polyuria, polyphagia, and marked weight changes, Hematologic/Lymphatic: Negative for swollen nodes, abnormal bleeding, and unusual bruising. Exam: 20:27 Head/Face: Normocephalic, atraumatic. Eyes: Pupils equal round and reactive to light, mh7 extra-ocular motions intact. Lids and lashes normal. Conjunctiva and sclera are non-icteric and not injected. Cornea within normal limits. Periorbital areas with no swelling, redness, or edema. Neck: Trachea midline, no thyromegaly or masses palpated, and no cervical lymphadenopathy. Supple, full range of motion without nuchal rigidity, or vertebral point tenderness. No Meningismus. Chest/axilla: Normal chest wall appearance and motion. Nontender with no deformity. No lesions are appreciated. 20:27 Abdomen/GI: Soft, non-tender, with normal bowel sounds. No distension or tympany. No guarding or rebound. No evidence of tenderness throughout. Back: No spinal tenderness. No costovertebral tenderness. Full range of motion. Skin: Warm, dry with normal turgor. Normal color with no rashes, no lesions, and no evidence of cellulitis. MS/ Extremity: Pulses equal, no cyanosis. Neurovascular intact. Full, normal range of motion. Neuro: Awake and alert, GCS 15, oriented to person, place, time, and situation. Cranial nerves II-XII grossly intact. Motor strength 5/5 in all extremities. Sensory grossly intact. Cerebellar exam normal. Normal gait. 20:27 Constitutional: The patient appears in no acute distress, alert, awake, anxious. 20:27 Cardiovascular: Rate: tachycardic, Rhythm: irregularly irregular, Pulses: no pulse deficits are appreciated, Heart sounds: normal, normal S1and S2, Edema: is not appreciated, JVD: is not appreciated. 20:27 Respiratory: the patient does not display signs of respiratory distress, Respirations: normal, Breath sounds: rhonchi, that are mild, are scattered, Respiratory rate: 17 20:27 Psych: Behavior/mood is pleasant, cooperative, anxious, Affect is calm, Oriented to person, place, time, Patient has no thoughts/intents to harm self or others. Judgement / Insight is normal. Memory is normal. Delusions/hallucinations are not present. Vital Signs: 19:36 BP 191 / 109; Pulse 106; Resp 17 S; Temp 96.7(TE); Pulse Ox 99% on R/A; Weight 113.4 kg ca1 (R); Height 5 ft. 0 in. (152.40 cm) (R); 20:31 BP 161 / 125; Pulse 102; Resp 18; Pulse Ox 98% on R/A; ea 20:45 BP 159 / 91; Pulse 79; Resp 18; Pulse Ox 98% on R/A; ea 21:41 BP 163 / 97; Pulse 102; Resp 18; Pulse Ox 98% on R/A; ea 22:05 Temp 97.6; ea 23:00 BP 186 / 107; Pulse 96; Resp 18; Pulse Ox 98% ; ea 04/15 00:37 BP 155 / 96; Pulse 106; Resp 18; Pulse Ox 98% ; ea 01:30 Pulse 92; Resp 18; Temp 97.8(TE); Pulse Ox 98% ; ea 02:25 BP 169 / 80; Pulse 94; Resp 18; Temp 97.8; Pulse Ox 99% on R/A; ea 04/14 19:36 Body Mass Index 48.82 (113.40 kg, 152.40 cm) ca1 MDM: 04/14 19:54 Patient medically screened. [facility] 04/15 01:58 Differential Diagnosis: CVA, electrolyte abnormality, hypoglycemia, intracranial bleed, mh7 seizure, TIA, UTI, volume depletion. Data reviewed: vital signs, nurses notes, old medical records, lab test result(s), cardiac enzymes, CBC, electrolytes, urinalysis, EKG, radiologic studies, CT scan, plain films. Data interpreted: Pulse oximetry: on room air is 98 %. Interpretation: normal. Counseling: I had a detailed discussion with the patient and/or guardian regarding: the historical points, exam findings, and any diagnostic results supporting the discharge/admit diagnosis, the presence of at least one elevated blood pressure reading (>120/80) during this emergency department visit, lab results, radiology results, the need to transfer to another facility, for higher level of care, [facility] does not immediately have the required specialist. Response to treatment: the patient's symptoms have resolved after treatment, the patient's blood pressure is in an acceptable range, mental status has returned to baseline, the patient no longer shows bradycardia, the patient is not short of breath, the patient is not tachycardic, the patient's pain is gone, the patient's temperature has normalized. 04/14 19:56 Order name: Basic Metabolic Panel; Complete Time: 20:54 [facility] 04/14 19:56 Order name: CBC with Diff; Complete Time: 20:28 [facility] 04/14 19:56 Order name: LFT's; Complete Time: 20:54 [facility] 04/14 19:56 Order name: Magnesium; Complete Time: 20:54 [facility] 04/14 19:56 Order name: NT PRO-BNP; Complete Time: 20:54 [facility] 04/14 19:56 Order name: PT-INR; Complete Time: 20:28 [facility] 04/14 19:56 Order name: Troponin (emerg Dept Use Only); Complete Time: 20:54 [facility] 04/14 19:56 Order name: XRAY Chest (1 view); Complete Time: 21:27 [facility] 04/14 19:56 Order name: CT Head Brain wo Cont; Complete Time: 21:27 [facility] 04/14 21:25 Order name: DD; Complete Time: 22:24 04/14 22:03 Order name: CT Chest For PE Angio [facility] 04/14 19:56 Order name: EKG; Complete Time: 19:57 [facility] 04/14 19:56 Order name: Cardiac monitoring; Complete Time: 19:57 [facility] 04/14 19:56 Order name: EKG - Nurse/Tech; Complete Time: 20:21 [facility] 04/14 19:56 Order name: IV Saline Lock; Complete Time: 20:21 [facility] 04/14 19:56 Order name: Labs collected and sent; Complete Time: 20:21 [facility] 04/14 19:56 Order name: O2 Per Protocol; Complete Time: 20:21 [facility] 04/14 19:56 Order name: O2 Sat Monitoring; Complete Time: 20:21 Administered Medications: 04/14 20:29 Drug: Lopressor 5 mg Route: IVP; Site: right forearm; ea 22:09 Follow up: Response: No adverse reaction ea 23:15 Drug: Ativan 0.5 mg Route: IVP; Site: right forearm; ea 04/15 01:55 Follow up: Response: No adverse reaction mg2 00:59 Drug: Aspirin Chewable Tablet 324 mg Route: PO; mg2 01:55 Follow up: Response: No adverse reaction mg2 01:55 Drug: Lovenox 1 mg/kg Route: Sub-Q; Site: left lower abdomen; mg2 02:26 Follow up: Response: No adverse reaction ea Disposition: 04/15/20 02:00 Transfer ordered to [facility]. Diagnosis are Transient Ischemic Attack, New Onset Atrial Fibrillation with RVR. - Reason for transfer: Higher level of care. - Accepting physician is Dr. Vaughan. - Condition is Stable. - Problem is new. - Symptoms have improved. Signatures: Dispatcher [employer] EDMS Aroldo Johnson, LUCIO-C [id number] Miri Adamson RN Gordy Falcon ea, RN Marley Yu RN Ifeanyi Sterling MD MD mh7 Corrections: (The following items were deleted from the chart) 03:38 02:00 04/15/2020 02:00 Transfer ordered to [facility]. Diagnosis is Transient ea Ischemic Attack; New Onset Atrial Fibrillation with RVR. Reason for transfer: Higher level of care. Accepting physician is Dr. Vaughan. Condition is Stable. Problem is new. Symptoms have improved. mh7
[2020-04-15] MEDS ORDERED: ENOXAPARIN 100 MG/ML SYR SQ ONE (02:04)
[2020-04-15 03:52] VITALS: TEMP 97.8
[2020-04-15 03:54] VITALS: BP 169/80; O2SAT 99
--- NOTE | 2020-04-15 10:46 | RAD REPORT ---
EXAM DESCRIPTION: CT - Chest For Pe Angio - 04/15/2020 4:55 am CLINICAL HISTORY: SOB COMPARISON: 04/28/2019 TECHNIQUE: CTA of the chest obtained following the uncomplicated intravenous administration of iodin ated contrast. 3-D/MIP reformatted images of the chest available for evaluation. FINDINGS: Chest: Pulmonary arteries: Contrast bolus is adequate.No filling defects identified in the pulmonary arterie s to suggest pulmonary embolus. Thyroid: No abnormalities of the visualized thyroid. Great Vessels: Great vessels have normal anatomic configuration. Thoracic Aorta: Atherosclerotic calcification of the thoracic aorta. Heart: Cardiomegaly. Coronary artery atherosclerosis. Trace pericardial effusion. Lymph Nodes: No enlarged mediastinal lymph nodes identified. Esophagus: No abnormalities of the esophagus identified. Other: No additional findings. Lungs: No airspace opacities identified. Pleura: No pleural effusion or pneumothorax. Trachea/Airways: No abnormalities of the visualized trachea or airways. Bones: Degenerative change of the spine. Upper Abdomen: Limited images of the upper abdomen demonstrate no definite abnormalities of visualize d portions of the liver, gallbladder, pancreas, spleen, adrenal glands, or kidneys. IMPRESSION: 1. No pulmonary embolus. 2. Cardiomegaly. Coronary artery atherosclerosis. This exam was performed according to our departmental dose-optimization program, which includes autom ated exposure control, adjustment of the mA and/or kV according to patient size and/or use of iterati ve reconstruction technique. Electronically signed by: Slava Clifford 04/15/2020 12:08 AM CDT Due to temporary technical issues with the PACS/Fluency reporting system, reports are being signed by the in house radiologist without review as a courtesy to ensure prompt reporting. The interpreting r adiologist is fully responsible for the content of the report.
== END 2020-04-15 03:38 | disposition short-term general hospital (02) ==
LOC: ER 19:31
DX: G45.9 Transient cerebral ischemic attack, unspecified (principal); I48.91 Unspecified atrial fibrillation; I10 Essential (primary) hypertension; I25.2 Old myocardial infarction
CPT/HCPCS: 93005 ×2; 85025; 80048; 36415; 83735; 85610; 85379; 80076; 84484; 83880; 70450; 71275; 71045; 96375; 96372; 96374; 99285; Q9967; J1650